=== PATIENT | male | born 1980 | race Caucasian/White ===

== ENCOUNTER → 2020-12-05 | Outpatient (CLI) | payer BC ==
[2020-12-05 08:12] LABS: HEMOGLOBIN 15.8 gm/dl (14.0-17.5); RED BLOOD COUNT 5.09 M/UL (4.20-5.50); WHITE BLOOD COUNT 3.3 K/UL (4.5-11.0)
[2020-12-05 08:41] LABS: BUN/CREATININE RATIO 22 (0-10)
== END ==
LOC: LAB 07:47
PROVIDERS: Internal Medicine
DX: Z13.1 Encounter for screening for diabetes mellitus (principal); Z13.220 Encounter for screening for lipoid disorders; K21.9 Gastro-esophageal reflux disease without esophagitis; R94.5 Abnormal results of liver function studies; Z79.899 Other long term (current) drug therapy
CPT/HCPCS: 36415; 80053; 80061; 84439; 84443; 85025

== ENCOUNTER → 2022-06-03 | Outpatient (CLI) | payer BC | LOC: KOH-I 13:17 | DX: R10.32 Left lower quadrant pain (principal) | CPT/HCPCS: 74018 ==